=== PATIENT | male | born 1955 | race Caucasian/White ===

== ENCOUNTER 2017-12-24 05:33 | Day surgery (SDC) | payer OTHER ==
[~2017-12-24] VITALS: Ht 172.7 cm; Wt 75.0 kg
[~2017-12-24 05:33] MED LIST: ALBU90OI; ALBU90OI6 INH; AMLO10 PO; ASPI81CH PO; ATOR20 PO; Acidophilus1 EAC2 PO; Amlodipine Besy10 MG; CALTRATE 600 +1 EACH PO; CENTRUM SILVER1 EAC2 PO; CLOP75 PO; FLUSAL2505; FLUT1DIS5 INH; LOSARTAN POTAS100 MG PO; LOSARTAN-HCTZ PO; LOSARTAN-HCTZ1 EAC1; MAGOXI400 PO; METO50 PO; MONT10T PO; MONTELUKAST SOD10 MG; Multivitamin1 EAC1 PO; OSTEO BI-FLEX1 EAC2 PO; VITAMIN B-122000 MCG PO
[2018-10-12] MEDS ORDERED: Prinivil10 MG PO (07:08)
== END 2017-12-24 11:30 | disposition home or self-care (01) ==
LOC: MHTC 05:33
PROC: B211YZZ Fluoroscopy of Multiple Coronary Arteries using Other Contrast (ICD-10-PCS; principal; 2017-12-24)
PROC: 4A023N7 Measurement of Cardiac Sampling and Pressure, Left Heart, Percutaneous Approach (ICD-10-PCS; principal; 2017-12-24)
DX: I35.0 Nonrheumatic aortic (valve) stenosis (principal); R94.39 Abnormal result of other cardiovascular function study; I10 Essential (primary) hypertension; E78.00 Pure hypercholesterolemia, unspecified; J98.4 Other disorders of lung; E78.5 Hyperlipidemia, unspecified; Q23.1 Congenital insufficiency of aortic valve; J45.909 Unspecified asthma, uncomplicated
CPT/HCPCS: 93458; 99152; 99153; C1769; C1894; J1644; J2250; J3010; J7030; Q9967

== ENCOUNTER 2021-01-18 08:16 | Day surgery (SDC) | payer OTHER ==
[~2021-01-18] VITALS: Ht 172.7 cm; Wt 70.1 kg
[~2021-01-18 08:16] MED LIST changes: +Aspir 8181 MG PO; +Prinivil10 MG PO
== END 2021-01-18 10:45 | disposition home or self-care (01) ==
LOC: ORSCSDS 08:16
PROVIDERS: Internal Medicine Gastroenterology
PROC: 0DBN8ZX Excision of Sigmoid Colon, Via Natural or Artificial Opening Endoscopic, Diagnostic (ICD-10-PCS; principal; 2021-01-18 10:00)
DX: Z12.11 Encounter for screening for malignant neoplasm of colon (principal); Z86.010 Personal history of colon polyps; D12.5 Benign neoplasm of sigmoid colon; K57.30 Diverticulosis of large intestine without perforation or abscess without bleeding; K64.8 Other hemorrhoids; I10 Essential (primary) hypertension; J45.909 Unspecified asthma, uncomplicated; E78.5 Hyperlipidemia, unspecified; Z79.899 Other long term (current) drug therapy; Z79.82 Long term (current) use of aspirin
CPT/HCPCS: 88305; J2704; J7120

== ENCOUNTER 2021-10-09 06:08 | Day surgery (SDC) | payer OTHER ==
[~2021-10-09] VITALS: Ht 172.7 cm; Wt 75.0 kg
[2021-10-09] MEDS ORDERED: Caltrate-600 W1 EACH PO (06:50)
--- NOTE | 2021-10-09 09:12 | NUR ---
PT RETURNED TO RECOVERY ROOM IN BED. RIGHT FEMORAL GROIN SITE SOFT NON-TENDER WITH NO HEMATOMA, NO PULSATILE BLEEDING AND INTACT DRESSING. PT DENIES CHEST PAIN. CALL LIGHT IN REACH. R DP PULSE 2+.
--- NOTE | 2021-10-09 09:22 | NUR ---
DR AN IN ROOM TO SEE PT.
--- NOTE | 2021-10-09 11:20 | NUR ---
DISCHARGE INSTRUCTIONS REVIEWED, ALL QUESTIONS ANSWERED.
--- NOTE | 2021-10-09 11:31 | NUR ---
DISCHARGE INSTRUCTIONS WERE REVIEWED AND ALL QUESTIONS ANSWERED. PT AMBULATED TO BR TO VOID; NO CHANGES TO R FEM GROIN SITE - STILL SOFT NON-TENDER WITH NO HEMATOMA, NO PULSATILE BLEEDING AND INTACT DRESSING. 20 G IV REMOVED FROM LEFT AC WITH INTACT CANNULA.
--- NOTE | 2021-10-09 11:34 | NUR ---
PT ESCORTED OUT VIA WHEELCHAIR ESCORT.
== END 2021-10-09 11:45 | disposition home or self-care (01) ==
LOC: MHTC 06:08
DX: I70.213 Atherosclerosis of native arteries of extremities with intermittent claudication, bilateral legs (principal); I65.23 Occlusion and stenosis of bilateral carotid arteries; I10 Essential (primary) hypertension; J45.909 Unspecified asthma, uncomplicated; Z88.0 Allergy status to penicillin; Z79.899 Other long term (current) drug therapy
CPT/HCPCS: 36223; 36226; 76937; 99152; 99153; C1760; C1769; C1894; J1644; J2250; J3010; J7030; J7050; Q9967

== ENCOUNTER → 2025-07-12 | Outpatient (CLI) | payer OTHER ==
[~2025-07-12] MED LIST changes: +Caltrate-600 W1 EACH PO
== END ==
LOC: LAB SHORT 07-11 06:55 → LAB 06:55
DX: J20.9 Acute bronchitis, unspecified (principal)
CPT/HCPCS: 87070; 87205